=== PATIENT | male | born 1965 | race Caucasian/White ===

== ENCOUNTER → 2019-01-17 | Outpatient (CLI) | payer OTHER ==
[~2019-01-17] MED LIST: REGADENOSON INJ 0.4 MG/5 ML DISP.SYRIN IV ONE
--- NOTE | 2019-01-19 07:30 | RADIOLOGY REPORT ---
STRESS TEST REPORT PATIENT NAME: JUAN PEDERSON ROOM#: DATE OF SERVICE: 01/17/2019 AGE: 54Y ORDER#: [id number] REFERRING MD: TRINY JAMES M.D. PROCEDURE PERFORMED: REST/STRESS SINGLE ISOTOPE CARDIOLITE SPECT IMAGING WITH IV LEXISCAN STRESS AND GATED SPECT IMAGING INDICATION: Cardiomyopathy, congestive heart failure, rule out coronary artery disease, aortic insufficiency. CLINICAL HISTORY: This is a 54-year-old male with no known coronary artery disease history, but presented with congestive heart failure and was found to have a loud AR murmur. Current symptomatology includes no chest pain. REPORT: The patient received IV Lexiscan 0.4 mg flushed. The resting heart rate was 82 bpm and increased to 95 bpm and end infusion. The resting blood pressure was 113/55 and increased to 130/60 at end infusion. The patient had symptoms of shortness of breath, but no chest pains. The resting 12-lead EKG showed normal sinus rhythm at 81 bpm, LVH with strain and nonspecific ST-T changes in the inferior leads. At end infusion, no increased ST changes were seen. Myocardial perfusion imaging was performed at rest 60 minutes following injection of 12.70 mCi of Cardiolite. Ten seconds after the infusion he was injected with 38.1 mCi of Cardiolite then flushed. Gated post stress tomographic imaging was performed 60 minutes after stress. FINDINGS: The overall quality of the study is good. The left ventricular cavity is severely enlarged to an end-systolic volume of 281 mL on both the rest and stress studies. The TID ratio was 1.14 and this is upper limit of normal. There was no right ventricular uptake. The EF is 26%. SPECT images showed no reversible ischemia, but there is a small area of mild fixed perfusion defect in the mid anterior wall and basal inferoseptal wall. There is a larger, very severe, fixed perfusion defect in the inferior wall. No reversible ischemia. Gated SPECT imaging showed no motion contraction in the apex, there is moderate global hypokinesis, especially with severe decreased motion contraction in the inferior wall and the basal inferolateral wall. The left ventricular ejection fraction was calculated to be 26%. IMPRESSION: Myocardial perfusion imaging is very abnormal. There is severe cardiomegaly with end-systolic volume of 281 mL, but there was no increased right ventricular uptake. There is no reversible ischemia but there was a large fixed severe perfusion defect in the inferior wall and a smaller, milder fixed perfusion defect in the mid anterior wall and the basal inferoseptal wall. Overall left ventricular systolic function was 26% with no motion contractions in the apex, moderate global hypokinesis, and severe reduced motion contraction in the inferior wall and the basal inferolateral wall. No prior study for comparison. Recommend R and LHC, optimize HF meds, avoid bradycardia, cardiovascular surgery for AR after catheterisation. INTERPRETING PHYSICIAN: TRINY JAMES M.D. /: [id number] TT: [id number] ID: [id number] /: [id number] TD: [id number] JOB: [id number] cc:TRINY JAMES M.D. > MTDD
== END ==
LOC: RAD 06:42
PROVIDERS: ATTEND Internal Medicine Cardiovascular Disease
DX: I35.1 Nonrheumatic aortic (valve) insufficiency (principal); I50.9 Heart failure, unspecified; I51.7 Cardiomegaly; R06.00 Dyspnea, unspecified
CPT/HCPCS: 93017; 78452; A9500; J2785; Q9969

== ENCOUNTER → 2019-01-30 | Outpatient (CLI) | payer OTHER ==
[2019-01-30 11:11] LABS: HEMATOCRIT 38.7 % (37.9-51.0); HEMOGLOBIN 13.5 g/dL (13.5-17.0); MEAN CORPUSCULAR HEMOGLOBIN 31.2 pg (27.0-33.4); MEAN CORPUSCULAR VOLUME 89 fl (80-97); PLATELET COUNT 241 10^3/uL (150-450); RED BLOOD COUNT 4.34 10^6/uL (4.35-5.55); RED CELL DISTRIBUTION WIDTH 13.5 % (11.5-14.0); WHITE BLOOD COUNT 6.4 10^3/uL (4.0-10.5)
[2019-01-30 11:18] LABS: INTERNATIONAL RATION (INR) 0.97; PROTHROMBIN TIME 13.4 SEC (11.4-15.4)
[2019-01-30 11:19] LABS: PARTIAL THROMBOPLASTIN TIME 37.9 SEC (23.5-35.8)
[2019-01-30 11:47] LABS: ANION GAP 13 (5-19); BLOOD UREA NITROGEN 18 mg/dL (7-20); CALCIUM 9.7 mg/dL (8.4-10.2); CARBON DIOXIDE 23 mmol/L (22-30); CHLORIDE 99 mmol/L (98-107); GLUCOSE 113 mg/dL (75-110)
== END ==
LOC: OD 10:17
PROVIDERS: ATTEND Physician Assistant
DX: Z01.810 Encounter for preprocedural cardiovascular examination (principal); R07.9 Chest pain, unspecified; R07.89 Other chest pain; Z79.01 Long term (current) use of anticoagulants
CPT/HCPCS: 36415; 80048; 85027; 85610; 85730

== ENCOUNTER 2020-08-11 11:17 | Emergency (ER) | payer OTHER ==
--- NOTE | 2020-08-11 12:04 | ER Document Report ---
ED Syncope and Near Syncope - General Chief Complaint: Syncope Stated Complaint: HYPOTENSION Time Seen by Provider: 08/11/20 11:34 Primary Care Provider: MAICO BLUNT MD [NO LOCAL MD] - Follow up tomorrow ANITA SUAREZ PA-C [PHYSICIAN NEUROLOGY STROKE PHYSICIAN] - Follow up in 3-5 days Notes: Patient is a 55-year-old male who presents to the emergency department after syncopal episode at home. Patient states that he did not feel well this morning and ended up having a syncopal episode. His was there with him and he turned pale and his eyes rolled back into his head. EMS arrived and his blood pressure was in the 80s systolic. He was given IV fluids via EMS. He has had a slight cough, but states that it has not been going on for a long time.. Denies any contact with anybody who tested positive for COVID-19. Patient denies any chest pain, shortness of breath, difficulty breathing, or any other symptoms at this time. Denies any abdominal pain, nausea, or vomiting. Patient states that he feels his normal self. reports that his color is back to normal. TRAVEL OUTSIDE OF THE [place] IN LAST 30 DAYS: No - Related Data Allergies/Adverse Reactions: No Known Allergies Allergy (Unverified 05/18/13 09:55) Past Medical History - Social History Smoking Status: Never Smoker Family History: Reviewed & Not Pertinent Patient has homicidal ideation: No - Past Medical History Cardiac Medical History: Reports: Hx Hypertension Denies: Hx Coronary Artery Disease, Hx Heart Attack Pulmonary Medical History: Denies: Hx Asthma, Hx Bronchitis, Hx COPD, Hx Pneumonia Neurological Medical History: Denies: Hx Cerebrovascular Accident, Hx Seizures Musculoskeletal Medical History: Denies Hx Arthritis - Immunizations Hx Diphtheria, Pertussis, Tetanus Vaccination: Yes Review of Systems - Review of Systems Notes: REVIEW OF SYSTEMS: CONSTITUTIONAL : Denies recent illness. Denies recent unintentional weight loss. Denies fever, chills, or sweats. EENT: Denies eye, ear, throat, or mouth pain, discharge, or symptoms. Denies nasal or sinus congestion. CARDIOVASCULAR: Denies chest pain. RESPIRATORY: Denies shortness of breath, cough, congestion, difficulty breathing, or wheezing. GASTROINTESTINAL: Denies nausea, vomiting, and diarrhea. Denies abdominal pain. Denies constipation. GENITOURINARY: Denies difficulty urinating, burning, blood in urine, urgency or frequency. MUSCULOSKELETAL: Denies neck and back pain. Denies joint pain or swelling. SKIN: Denies rash, itchiness, or lesions HEMATOLOGIC : Denies easy bruising or bleeding. LYMPHATIC: Denies swollen, painful, enlarged glands. NEUROLOGICAL: See HPI. PSYCHIATRIC: Denies stress, anxiety, alteration in sleep patterns, or depression. All other systems reviewed and negative. Physical Exam - Vital signs Vitals: Resp Pulse Ox 15 98 08/11/20 11:21 08/11/20 11:21 - Notes Notes: PHYSICAL EXAMINATION: GENERAL: Appears well, healthy, well-nourished, no acute distress. HEAD: Normocephalic, atraumatic. EYES: PERRL, conjunctiva normal, all extraocular movements intact, sclera nonicteric ENT: Moist mucous membranes. NECK: Supple, no noticeable swelling, redness, rash. Normal range of motion. LUNGS: Equal breath sounds bilaterally and clear to auscultation. No wheezes rales or rhonchi. CARDIOVASCULAR: S1-S2, regular rate, regular rhythm. Radial pulses 2+, normal. ABDOMEN: Normoactive bowel sounds. Soft, nontender, no guarding, no rebound tenderness, and no masses palpated. EXTREMITIES: Normal strength and range of motion, no pitting or edema. No cyanosis. NEUROLOGICAL: Moves all extremities upon command. Strength 5/5 in all extremities. PSYCH: Normal mood, normal affect. SKIN: Warm, dry. 1 cm very well approximated, superficial cut to lateral left eyebrow. Normal skin turgor. Course - Re-evaluation Re-evalutation: 08/11/20 13:36 Hematology shows a hemoglobin of 13.3 this is the patient's normal from previous labs. Coag studies are unremarkable. Chemistries show sodium of 133.7. BNP is 207. Troponin is negative. Chest x-ray is normal. Awaiting urinalysis. I paged Dr. Gastelum' office, the patient's accounts payables clerk. The on-call accounts payables clerk will give me a call back. 08/11/20 13:[address] Pearl, the accounts payables clerk on-call for Dr. Gastelum, he states that as long as the patient's orthostatics are normal, urinalysis is also normal, he would like the patient to either decrease his Entresto or be off his Coreg for a few days. The patient reported to me that the Entresto he had him feel less motivated when he increased it back in May. After discussing this with Dr. Pearl, we will decrease his Entresto to half the dose. Still awaiting urinalysis. 08/11/20 15:03 Orthostatic vital signs are normal. Urinalysis is unremarkable. At this time, the patient's 131/88. Patient agrees to follow-up with his accounts payables clerk tomorrow. Follow-up precautions were given. Verbal discharge instructions were given to the patient. They verbalized understanding. They are stable for discharge. - Vital Signs Vital signs: Temp Pulse Resp BP Pulse Ox 97.7 F 66 12 131/84 H 97 08/11/20 11:27 08/11/20 13:50 08/11/20 14:31 08/11/20 14:31 08/11/20 14:31 - Laboratory Results Result Diagrams: 08/11/20 11:25 08/11/20 11:25 Laboratory Results Interpreted: 08/11/20 08/11/20 08/11/20 11:25 11:25 11:25 RBC 4.18 L Hgb 13.3 L Sodium 133.7 L NT-Pro-B Natriuret Pep 207 H Critical Laboratory Results Reviewed: No Critical Results - Radiology Results Critical Radiology Results Reviewed: No Critical Results - EKG Interpretation by Me Additional EKG results interpreted by me: 08/11/20 sinus rhythm. Rate 63. MO 212; QRS 104; QT 416; QTc 426. No ST elevations or depressions noted. Discharge - Discharge Clinical Impression: Hypotension Qualifiers: Hypotension type: unspecified hypotension type Qualified Code(s): I95.9 - Hypotension, unspecified Syncope Qualifiers: Syncope type: unspecified Qualified Code(s): R55 - Syncope and collapse Condition: Stable Disposition: HOME, SELF-CARE Additional Instructions: You were seen today in the emergency department for passing out. Your blood pressure was low. Please make sure you stay well-hydrated. Follow-up with your accounts payables clerk and primary care provider in regards to this visit. Call your accounts payables clerk first thing tomorrow morning to get an appointment this week. As discussed, your Entresto is being decreased. Discussed this with your accounts payables clerk. Prescriptions: Sacubitril/Valsartan [Entresto 49 mg/51 mg Tablet] 1 tab PO BID #60 tablet Referrals: ANITA SUAREZ PA-C [PHYSICIAN NEUROLOGY STROKE PHYSICIAN] - Follow up in 3-5 days MAICO BLUNT MD [NO LOCAL MD] - Follow up tomorrow
[2020-08-11 12:24] LABS: ABSOLUTE EOSINOPHILS # (AUTO) 0.1 10^3/uL (0.0-0.6); ABSOLUTE LYMPHOCYTES (AUTO) 1.2 10^3/uL (0.5-4.7); ABSOLUTE MONOCYTES (AUTO) 0.5 10^3/uL (0.1-1.4); ABSOLUTE NEUT (AUTO) 5.2 10^3/uL (1.7-8.2); BASOPHILS % (AUTO) 0.3 % (0-2); HEMATOCRIT 38.4 % (37.9-51.0); HEMOGLOBIN 13.3 g/dL (13.5-17.0); LYMPHOCYTES % (AUTO) 16.7 % (13-45); MEAN CORPUSCULAR HEMOGLOBIN 31.7 pg (27.0-33.4); MEAN CORPUSCULAR HGB CONC 34.6 g/dL (32.0-36.0); MEAN CORPUSCULAR VOLUME 92 fl (80-97); MONOCYTES % (AUTO) 7.3 % (3-13); PLATELET COUNT 188 10^3/uL (150-450); RED BLOOD COUNT 4.18 10^6/uL (4.35-5.55); RED CELL DISTRIBUTION WIDTH 13.5 % (11.5-14.0); SEGMENTED NEUTROPHILS % (AUTO) 73.7 % (42-78); TOTAL CELLS COUNTED % (AUTO) 100 %
--- NOTE | 2020-08-11 12:30 | RADIOLOGY REPORT (SQ) ---
EXAM DESCRIPTION: CHEST 2 VIEWS IMAGES COMPLETED DATE/TIME: 08/11/2020 12:12 pm REASON FOR STUDY: cough COMPARISON: None. EXAM PARAMETERS: NUMBER OF VIEWS: two views TECHNIQUE: Digital Frontal and Lateral radiographic views of the chest acquired. RADIATION DOSE: NA LIMITATIONS: none FINDINGS: LUNGS AND PLEURA: No opacities, masses or pneumothorax. No pleural effusion. MEDIASTINUM AND HILAR STRUCTURES: No masses or contour abnormalities. HEART AND VASCULAR STRUCTURES: CABG. Aortic valve replacement. Heart normal size. No evidence for failure. BONES: Median sternotomy wires. Lower cervical fusion hardware. HARDWARE: Left chest wall single lead cardiac pacing device. OTHER: No other significant finding. IMPRESSION: No acute pulmonary findings. TECHNICAL DOCUMENTATION: JOB ID: [id number] 2010 [employer]- All Rights Reserved Reading location - IP/workstation name: [email or web address]
[2020-08-11 12:37] LABS: INTERNATIONAL RATION (INR) 1.02; PARTIAL THROMBOPLASTIN TIME 29.1 SEC (23.5-35.8); PROTHROMBIN TIME 13.6 SEC (11.4-15.4)
[2020-08-11 12:44] LABS: ALBUMIN 4.2 g/dL (3.5-5.0); ALKALINE PHOSPHATASE 49 U/L (38-126); ANION GAP 12 (5-19); ASPARTATE AMINO TRANSFERASE 45 U/L (17-59); BILIRUBIN,DIRECT 0.2 mg/dL (0.0-0.4); BILIRUBIN,TOTAL 0.6 mg/dL (0.2-1.3); BLOOD UREA NITROGEN 13 mg/dL (7-20); CALCIUM 9.1 mg/dL (8.4-10.2); CARBON DIOXIDE 23 mmol/L (22-30); CHLORIDE 99 mmol/L (98-107); GLUCOSE 107 mg/dL (75-110); POTASSIUM 4.9 mmol/L (3.6-5.0)
[2020-08-11 12:55] LABS: NT PRO BNP 207 pg/mL (<125)
[2020-08-11 12:57] LABS: TROPONIN I < 0.012 ng/mL
[2020-08-11 14:27] LABS: PHOSPHORUS 4.4 mg/dL (2.5-4.5)
[2020-08-11 14:28] LABS: APPEARANCE,URINE CLEAR; BILIRUBIN,URINE NEGATIVE (NEGATIVE); COLOR,URINE YELLOW; GLUCOSE, URINE NEGATIVE (NEGATIVE); KETONES,URINE NEGATIVE (NEGATIVE); LEUKOCYTE ESTERASE,URINE NEGATIVE (NEGATIVE); NITRITE,URINE NEGATIVE (NEGATIVE); PROTEIN,URINE NEGATIVE (NEGATIVE); URINE SPECIFIC GRAVITY 1.011; UROBILINOGEN,URINE NEGATIVE mg/dL (<2.0)
[2020-08-11 15:11] VITALS: BP 131/88
--- NOTE | 2020-08-12 00:13 | EKG REPORT ---
SEVERITY:- ABNORMAL ECG - SINUS RHYTHM FIRST DEGREE AV BLOCK NONSPECIFIC T ABNORMALITIES, ANT-LAT LEADS : Confirmed by: Missael Moe 12-Aug-2020 00:13:31
== END 2020-08-11 15:18 | disposition home or self-care (01) ==
LOC: ER 11:17
DX: I95.9 Hypotension, unspecified (principal); R55 Syncope and collapse
CPT/HCPCS: 36415; 71046; 80053; 81001; 82553; 83735; 83880; 84100; 84484; 85025; 85610; 85730; 93005; 93010; 99285